=== PATIENT | male | born 2000 | race Two or more races ===

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

== ENCOUNTER 2022-03-27 19:49 | Emergency (ER) | payer MEDICAID ==
--- NOTE | 2022-03-27 20:02 | ERPHSYRPT ---
- History of Present Illness Time Seen by Provider: 03/27/22 20:02 Source: patient Exam Limitations: no limitations Physician History: This is a 22-year-old male with 2 to 3-day history of tenderness redness and now abscess to the right inner thigh. He did not see an insect or spider. It may be an infected hair follicle. He presents today with a temperature of 102 F as well as heart rate in the 120s. Timing/Duration: day(s) (2 to 3 days) Quality: painful Severity: moderate Location: none Possible Causes: no cause identified Associated Symptoms: swelling/mass/lumps (Under red abscess) Allergies/Adverse Reactions: No Known Drug Allergies Allergy (Verified 05/27/20 14:19) Home Medications: Mesalamine [Pentasa] 1,000 mg PO QID 05/27/20 [History] Hx Tetanus, Diphtheria Vaccination/Date Given: Yes (UP TO DATE) Hx Influenza Vaccination/Date Given: No Hx Pneumococcal Vaccination/Date Given: No Travel Risk - International Travel Have you traveled outside of the country in past 3 weeks: No - Coronavirus Screening Are you exhibiting any of the following symptoms?: No Close contact with a COVID-19 positive Pt in past 14-21 Days: No - Review of Systems Constitutional: Fever Eyes: No Symptoms Ears, Nose, & Throat: No Symptoms Respiratory: No Symptoms Cardiac: No Symptoms Abdominal/Gastrointestinal: No Symptoms Genitourinary Symptoms: No Symptoms Musculoskeletal: No Symptoms Skin: Cellulitis (Right inner upper thigh abscess) Neurological: No Symptoms Psychological: No Symptoms Endocrine: No Symptoms Hematologic/Lymphatic: No Symptoms Immunological/Allergic: No Symptoms All Other Systems: Reviewed and Negative - Past Medical History Pertinent Past Medical History: No Other Medical History: inflammed colon - Past Surgical History Past Surgical History: No - Social History Smoking Status: Never smoker Exposure to second hand smoke: No Drug Use: none Patient Lives Alone: No - Nursing Vital Signs Nursing Vital Signs: Initial Vital Signs Temperature 102.6 F 03/27/22 19:57 Pulse Rate 119 H 03/27/22 19:57 Respiratory Rate 18 03/27/22 19:57 Blood Pressure 136/84 03/27/22 19:57 O2 Sat by Pulse Oximetry 96 03/27/22 19:57 Pain Scale Pain Intensity 6 - Physical Exam General Appearance: no apparent distress, alert Eye Exam: PERRL/EOMI, eyes nml inspection Ears, Nose, Throat Exam: normal ENT inspection, moist mucous membranes Neck Exam: normal inspection, non-tender, supple, full range of motion Respiratory Exam: airway intact, No chest tenderness, No respiratory distress Cardiovascular Exam: tachycardia Gastrointestinal/Abdomen Exam: No tenderness Rectal Exam: not done Extremity Exam: normal range of motion, pelvis stable, tenderness (Right upper inner outer thigh with cellulitis, induration and a 2 cm x 2 cm abscess) Neurologic Exam: alert, oriented x 3, cooperative, orthotics prosthetics technician II-XII nml as tested, normal mood/affect, nml cerebellar function, nml station & gait, sensation nml Skin Exam: other (Abscess right upper inner thigh) Lymphatic Exam: No adenopathy SpO2 Interpretation: normal O2 Delivery: Room Air Procedures - Incision and Drainage Time of Procedure: 20:25 Site: Right upper inner thigh Anesthesia: 1% Lidocaine cc's of anesthesia: 5 Blade Size: 15 I & D Procedure: betadine prep Results: small amount pus Ordered Tests: Active Orders 24 hr Category Date Time Status IV Insertion STAT Care 03/27/22 20:30 Active Pulse Oximetry (ED) STAT Care 03/27/22 20:30 Active BLOOD CULTURE Stat Lab 03/27/22 20:52 Received BMP Stat Lab 03/27/22 20:35 Completed CBC W DIFF Stat Lab 03/27/22 20:35 Completed CULTURE,WOUND Stat Lab 03/27/22 20:52 Received Medication Summary Generic Name Dose Route Start Last Admin Trade Name Freq PRN Reason Stop Dose Admin Sodium Chloride 1,000 mls @ 999 mls/hr 03/27/22 20:30 03/27/22 20:49 Sodium Chloride 0.9% 1000 Ml IV 03/27/22 21:30 999 mls/hr .Q1H1M STA Administration Discontinued Medications Generic Name Dose Route Start Last Admin Trade Name Freq PRN Reason Stop Dose Admin Hydrocodone Bitart/Acetaminophen 2 tab 03/27/22 21:01 Hydrocodone/Apap 5/325 1 Tab Tablet PO 03/27/22 21:02 SENT HOME W/ PATIENT ONE Hydrocodone Bitart/Acetaminophen 1 tab 03/27/22 21:05 03/27/22 21:18 Hydrocodone/Apap 5/325 1 Tab Tablet PO 03/27/22 21:06 1 tab STAT ONE Administration Hydrocodone Bitart/Acetaminophen Confirm 03/27/22 21:15 Hydrocodone/Apap 5/325 1 Tab Tablet Administered 03/27/22 21:16 Dose 1 tab .ROUTE .STK-MED ONE Ceftriaxone Sodium 1,000 mg 03/27/22 20:30 03/27/22 20:59 Ceftriaxone Sodium 1000 Mg Inj Vial IM 03/27/22 20:31 Not Given STAT ONE Ceftriaxone Sodium/Dextrose 1 g in 50 mls @ 100 mls/hr 03/27/22 20:39 03/27/22 20:48 Rocephin 1 Gm-D5w 50 Ml Bag IV 03/27/22 21:08 100 ml/hr STAT STA 100 mls/hr Administration Sodium Chloride Confirm 03/27/22 20:45 Sodium Chloride 0.9% 1000 Ml Administered 03/27/22 20:46 Dose 1,000 mls @ ud .ROUTE .STK-MED ONE Ceftriaxone Sodium/Dextrose Confirm 03/27/22 20:45 Rocephin 1 Gm-D5w 50 Ml Bag Administered 03/27/22 20:46 Dose 1 g in 50 mls @ ud IV .STK-MED ONE Ibuprofen 600 mg 03/27/22 21:05 03/27/22 21:17 Ibuprofen 600 Mg Tablet PO 03/27/22 21:06 600 mg STAT ONE Administration Ibuprofen Confirm 03/27/22 21:15 Ibuprofen 600 Mg Tablet Administered 03/27/22 21:16 Dose 600 mg .ROUTE .STK-MED ONE Levofloxacin 500 mg 03/27/22 20:30 03/27/22 20:50 Levofloxacin 500 Mg Tablet PO 03/27/22 20:31 500 mg STAT STA Administration Levofloxacin Confirm 03/27/22 20:45 Levofloxacin 500 Mg Tablet Administered 03/27/22 20:46 Dose 500 mg .ROUTE .STK-MED ONE Lidocaine HCl Confirm 03/27/22 20:45 Lidocaine Hcl 1% 20 Ml Mdv 20 Ml Ml Administered 03/27/22 20:46 Dose 5 ml .ROUTE .STK-MED ONE Lidocaine HCl 5 ml 03/27/22 21:13 03/27/22 21:17 Lidocaine Hcl 1% 20 Ml Mdv 20 Ml Ml IJ 03/27/22 21:14 5 ml STAT ONE Administration Lidocaine/Epinephrine 5 ml 03/27/22 20:29 03/27/22 21:18 Lidocaine Hcl/Epinephrine 1% 20 Ml IJ 03/27/22 20:30 Not Given STAT ONE Lab/Rad Data: Laboratory Result Diagrams 03/27/22 20:35 03/27/22 20:35 Laboratory Results 03/27/22 03/27/22 Range/Units 20:35 20:35 WBC 6.4 (4.0-10.5) x10^3/uL RBC 4.74 (4.1-5.6) x10^6/uL Hgb 13.0 (12.5-18.0) g/dL Hct 39.7 L (42-50) % MCV 83.8 (78-100) fL MCH 27.4 (26-32) pg MCHC 32.7 (32-36) g/dL RDW 12.2 (11.5-14.0) % Plt Count 209 (150-450) x10^3/uL MPV 9.1 (7.5-11.0) fL Gran % 69.2 H (36.0-66.0) % Immature Gran % (Auto) 0.3 (0.00-0.4) % Nucleat RBC Rel Count 0.0 (0.00-0.1) % Eos # (Auto) 0.01 (0-0.5) x10^3/uL Immature Gran # (Auto) 0.02 (0.00-0.03) x10^3u/L Absolute Lymphs (auto) 1.62 (1.0-4.6) x10^3/uL Absolute Monos (auto) 0.29 (0.0-1.3) x10^3/uL Absolute Nucleated RBC 0.00 (0.00-0.01) x10^3u/L Lymphocytes % 25.3 (24.0-44.0) % Monocytes % 4.5 (0.0-12.0) % Eosinophils % 0.2 (0.00-5.0) % Basophils % 0.5 (0.0-0.4) % Absolute Granulocytes 4.44 (1.4-6.9) x10^3/uL Basophils # 0.03 (0-0.4) x10^3/uL Sodium 132 L (137-145) mmol/L Potassium 3.5 (3.5-5.1) mmol/L Chloride 98 (98-107) mmol/L Carbon Dioxide 28 (22-30) mmol/L Anion Gap 10.1 (5-15) MEQ/L BUN 10 (9-20) mg/dL Creatinine 0.82 (0.66-1.25) mg/dL Estimated GFR > 60.0 ML/MIN Glucose 102 (74-106) mg/dL Calcium 8.3 L (8.4-10.2) mg/dL - Progress Progress: improved Counseled pt/family regarding: lab results, diagnosis, need for follow-up - Departure Departure Disposition: Home Clinical Impression: Abscess of right thigh, Cellulitis of right thigh Condition: Stable Critical Care Time: No Referrals: CLAUDIA GLOVER [Primary Care Provider] - Follow up/PCP as directed Additional Instructions: When you get home get in the shower and have the soap and water go directly onto the incision site. Blot dry use a hairdryer to dry the site. Expect some oozing of blood that should decrease over the next 2 to 3 days. Change the dressing as needed. Take your antibiotics as prescribed. Use your pain medicine as prescribed. Do not use any lotions ointments or creams. The wound will heal from the inside out. Therefore, make sure that you open up the wound to get the soap and water directly into the wound as best as possible during each washing. Prescriptions: Hydrocodone/APAP 5/325 [[place] 5/325 mg] 1 each PO Q8H PRN PRN #6 tablet MDD 3 PRN Reason: Pain Smz/Tmp Ds Tablet [Bactrim Ds Tablet] 1 udtab PO BID #14 tablet
[2022-03-27 20:14] VITALS: BP 136/84
[2022-03-27] MEDS ORDERED: XYLOCAINE 1%/Epi 1:100000 MDV 20 ML IJ ONE (20:29)
[2022-03-27] MEDS ORDERED: Levofloxacin 500 MG Tablet PO STA (20:30)
[2022-03-27] MEDS ORDERED: Rocephin 1000 MG INJ IM ONE (20:30)
[2022-03-27] MEDS ORDERED: Sodium Chloride 0.9% 1000 ML 1,000 ML IV STA (20:30)
[2022-03-27 20:37] LABS: Absolute Neutrophil Ct (ANC) 4.44 x10^3/uL (1.4-6.9); Basophil (Absolute #) 0.03 x10^3/uL (0-0.4); Eosinophil % 0.2 % (0.00-5.0); Eosinophil (Absolute #) 0.01 x10^3/uL (0-0.5); Hematocrit 39.7 % (42-50); Lymphocyte (Absolute #) 1.62 x10^3/uL (1.0-4.6); Lymphocytes % 25.3 % (24.0-44.0); Mean Cell Volume 83.8 fL (78-100); Mean Corpuscular Hemoglobin 27.4 pg (26-32); Mean Corpuscular Hgb Concent. 32.7 g/dL (32-36); Mean Platelet Volume 9.1 fL (7.5-11.0); Monocyte (Absolute #) 0.29 x10^3/uL (0.0-1.3); Monocytes % 4.5 % (0.0-12.0); Neutrophil % 69.2 % (36.0-66.0); Platelet Count 209 x10^3/uL (150-450); Red Blood Count 4.74 x10^6/uL (4.1-5.6); Red Cell Distribution Width 12.2 % (11.5-14.0); White Blood Count 6.4 x10^3/uL (4.0-10.5)
[2022-03-27] MEDS ORDERED: ROCEPHIN 1 Gm-D5w 50 ml Bag** 1 G/50 ML IVPB IV STA (20:39)
[2022-03-27 20:44] LABS: ANION GAP 10.1 MEQ/L (5-15); BLOOD UREA NITROGEN 10 mg/dL (9-20); CHLORIDE 98 mmol/L (98-107); Calcium 8.3 mg/dL (8.4-10.2); Carbon Dioxide 28 mmol/L (22-30); Creatinine 1 0.82 mg/dL (0.66-1.25); EST GLOMERULAR FILTRATION RATE > 60.0 ML/MIN; Glucose 102 mg/dL (74-106); Potassium 3.5 mmol/L (3.5-5.1); SODIUM 132 mmol/L (137-145)
[2022-03-27] MEDS ORDERED: XYLOCAINE 1% HCL 20 ML MDV ONE (20:45)
[2022-03-27] MEDS ORDERED: Sodium Chloride 0.9% 1000 ML 1,000 ML ONE (20:45)
[2022-03-27] MEDS ORDERED: Levofloxacin 500 MG Tablet ONE (20:45)
[2022-03-27] MEDS ORDERED: ROCEPHIN 1 Gm-D5w 50 ml Bag** 1 G/50 ML IVPB IV ONE (20:45)
[2022-03-27] MEDS ORDERED: NORCO 5/325 MG PO ONE ×2 (21:01→21:05)
[2022-03-27 21:05] VITALS: PULSE 107; O2SAT 98
[2022-03-27] MEDS ORDERED: XYLOCAINE 1% HCL 20 ML MDV IJ ONE (21:13)
[2022-03-27] MEDS ORDERED: MOTRIN 600 MG ONE (21:15)
[2022-03-27] MEDS ORDERED: NORCO 5/325 MG ONE ×2 (21:15→21:22)
[2022-03-27] MEDS: MOTRIN 600 MG PO ONE (21:17)
== END 2022-03-27 21:46 | disposition home or self-care (01) ==
LOC: ED 19:49
DX: L02.415 Cutaneous abscess of right lower limb (principal); L03.115 Cellulitis of right lower limb; R50.9 Fever, unspecified; R00.0 Tachycardia, unspecified; Z79.891 Long term (current) use of opiate analgesic; Z79.899 Other long term (current) drug therapy
CPT/HCPCS: 10060; 36415; 80048; 85025; 87040; 87070; 96360; 96365; 96372; 99284; J0696; A9270-GY

== ENCOUNTER 2023-05-14 08:16 | Emergency (ER) | payer MEDICAID ==
--- NOTE | 2023-05-14 08:20 | ERPHSYRPT ---
- History of Present Illness Time Seen by Provider: 05/14/23 08:20 Source: patient Exam Limitations: no limitations Physician History: This is a 23-year-old male patient of Dr. Hernandez who presents to the emergency department with complaints of fever, headache and sore throat that began yesterday. Patient has been using ibuprofen for pain and fever control. Prior to arrival, patient took 400 mg of Advil. He has not been taking any acetaminophen. Patient has noted drug allergies and takes no medications chronically. Patient has not had any vomiting or diarrhea symptoms. He denies cough. He does not have chest pain. He is not short of breath. He has no abd ominal pain. 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) Associated Symptoms: muscle aches, sore throat, No abdominal pain, No cough, No nausea/vomiting, No shortness of breath, No stiff neck Allergies/Adverse Reactions: No Known Drug Allergies Allergy (Verified 05/14/23 08:35) Hx Tetanus, Diphtheria Vaccination/Date Given: Yes (UP TO DATE) Hx Influenza Vaccination/Date Given: No Hx Pneumococcal Vaccination/Date Given: No Travel Risk - International Travel Have you traveled outside of the country in past 3 weeks: No - Coronavirus Screening Are you exhibiting any of the following symptoms?: Yes Symptoms: Fever, Headaches/Body Aches/Fatigue Close contact with a COVID-19 positive Pt in past 14-21 Days: No - Vaccine Status Have you recieved a Covid-19 vaccination: No - Review of Systems Constitutional: Fever Eyes: No Symptoms Ears, Nose, & Throat: Throat Pain Respiratory: No Symptoms Cardiac: No Symptoms Abdominal/Gastrointestinal: No Symptoms Genitourinary Symptoms: No Symptoms Musculoskeletal: Arthralgias, Myalgias Neurological: Headache Psychological: No Symptoms Endocrine: No Symptoms Hematologic/Lymphatic: No Symptoms Immunological/Allergic: No Symptoms All Other Systems: Reviewed and Negative - Past Medical History Pertinent Past Medical History: No Other Medical History: inflammed colon - Past Surgical History Past Surgical History: No - Social History Smoking Status: Never smoker Exposure to second hand smoke: No Drug Use: none Patient Lives Alone: No - Nursing Vital Signs Nursing Vital Signs: Initial Vital Signs Temperature 102.2 F 05/14/23 08:35 Pulse Rate 112 H 05/14/23 08:35 Respiratory Rate 20 05/14/23 08:35 Blood Pressure 106/59 05/14/23 08:35 O2 Sat by Pulse Oximetry 95 05/14/23 08:35 Pain Scale Pain Intensity 0 - Physical Exam General Appearance: no apparent distress, alert Eye Exam: PERRL/EOMI, post op pupil defect (L) ENT Exam: no apparent trauma, hearing grossly normal, pharyngeal erythema (Mild) Neck Exam: normal inspection, non-tender, supple, full range of motion, trachea midline, No stiff neck Respiratory Exam: normal breath sounds, lungs clear, no accessory muscle use, No chest non-tender, No no respiratory distress, No respiratory distress, No rhonchi, No stridor, No wheezing Cardiovascular/Chest Exam: tachycardia (Mild) Gastrointestinal/Abdominal Exam: soft, non tender, no distention, no mass, no guarding, no ecchymosis, no organomegaly, no pulsatile mass, normal bowel sounds Rectal Exam: not done Extremity Exam: non-tender, normal range of motion, normal inspection, normal capillary refill, no calf tenderness, no pedal edema, pelvis stable Neurologic Exam: alert, oriented x 3, cooperative, associate media planner II-XII nml as tested, normal mood/affect, nml cerebellar function, nml station & gait, sensation nml Skin Exam: normal color, warm, dry Lymphatic: No adenopathy SpO2 Interpretation: normal O2 Delivery: Room Air - Course Nursing assessment & vital signs reviewed: Yes Ordered Tests: Active Orders 24 hr Category Date Time Status UA W/RFX UR CULTURE Stat Lab 05/14/23 08:34 Completed Medication Summary Discontinued Medications Generic Name Dose Route Start Last Admin Trade Name Ata PRN Reason Stop Dose Admin Acetaminophen 650 mg 05/14/23 08:56 05/14/23 09:07 Acetaminophen 325 Mg Tablet PO 05/14/23 08:57 650 mg STAT ONE Administration Acetaminophen Confirm 05/14/23 08:59 Acetaminophen 325 Mg Tablet Administered 05/14/23 09:00 Dose 650 mg .ROUTE .STK-MED ONE Ibuprofen 200 mg 05/14/23 08:56 05/14/23 09:07 Ibuprofen 200 Mg Tablet PO 05/14/23 08:57 200 mg STAT ONE Administration Lab/Rad Data: Laboratory Results 05/14/23 05/14/23 Range/Units 08:34 08:34 Urine Color Dark Yellow (Yellow) Urine Appearance Clear (Clear) Urine pH 6.0 (4.6-8.0) Ur Specific [place] >=1.030 A (1.005-1.030) Urine Protein 30 (Negative) Urine Glucose (UA) Negative (Negative) mg/dL Urine Ketones Trace A (Negative) Urine Blood Negative (Negative) Urine Nitrite Negative (Negative) Urine Bilirubin Negative (Negative) Urine Urobilinogen 1.0 A (0.2) mg/dL Ur Leukocyte Esterase Negative (Negative) U Hyaline Cast (Auto) NONE SEEN (0-2) /LPF Urine Microscopic RBC 0-2 (0-5) /HPF Urine Microscopic WBC 0-2 (0-5) /HPF Ur Epithelial Cells None Seen (None Seen) /HPF Urine Bacteria None Seen (None Seen) /HPF Urine Culture Reflexed NO (NO) Influenza Type A Ag POSITIVE A (NEGATIVE) Influenza Type B Ag NEGATIVE (NEGATIVE) RSV (PCR) NEGATIVE (NEGATIVE) SARS-CoV-2 (PCR) NEGATIVE (NEGATIVE) Group A Strep Antibody NOT DETECTED (NEGATIVE) - Progress Progress Note: 05/14/23 08:54 This patient's medical issue is 1 of low to moderate complexity. The level of complexity in the workup performed is based on review of the patient's past medical history, review of the patient's medication list, review of the patient's drug allergy list, history of present illness and physical findings on examination. This patient's medical workup includes urinalysis, viral swabs, group A strep. Patient is not taking enough of ibuprofen. Will provide him with 200 mg more of ibuprofen and 650 mg of Tylenol. 05/14/23 10:13 I interpreted the patient's laboratory data results. Patient has influenza A. We will remotely send a prescription for Tamiflu to his pharmacy Counseled pt/family regarding: lab results, diagnosis, need for follow-up Medical Desision Making - Diagnostic Testing Diagnostic test were ordered, analyzed, and reviewed by me: Yes - Risk of complications The pt has a mod risk of morbidity or mortality based on: Need for prescription drug management - Departure Departure Disposition: Home Clinical Impression: Fever, Influenza A H1N1 infection Condition: Stable Critical Care Time: No Referrals: CLAUDIA HERNANDEZ [Primary Care Provider] - Follow up/PCP as directed Additional Instructions: Drink plenty of cool liquids. Take 600 mg of ibuprofen every 6-8 hours with food for the next 4 days to help with headache and fever control. Take 650 mg of Tylenol every 6-8 hours over the next 4 days to help with headache and fever control. Take your Tamiflu prescription as prescribed. Follow-up with your primary care provider for further evaluation management. Prescriptions: Oseltamivir 75 mg [Tamiflu 75MG Capsule] 75 mg PO BID #10 cap
[2023-05-14 08:44] LABS: Appearance Clear (Clear); Bacteria None Seen /HPF (None Seen); Bilirubin Negative (Negative); Blood Negative (Negative); Epithelial Cells None Seen /HPF (None Seen); Glucose, Urine Negative (Negative); Hyaline Casts NONE SEEN /LPF (0-2); Ketones Trace (Negative); Leukocyte Esterase Negative (Negative); Nitrite Negative (Negative); Protein,Urine Dip 30 (Negative); RBC 0-2 /HPF (0-5); Specific Gravity >=1.030 (1.005-1.030); WBC 0-2 /HPF (0-5)
[2023-05-14 08:45] LABS: ADD URINE CULTURE? NO (NO)
[2023-05-14] MEDS ORDERED: TYLENOL 325 MG ONE (08:59)
[2023-05-14] MEDS: TYLENOL 325 MG PO ONE (09:07)
[2023-05-14] MEDS: MOTRIN 200 MG PO ONE (09:07)
[2023-05-14 09:08] LABS: Group A Strep NOT DETECTED (NEGATIVE)
[2023-05-14 09:18] LABS: INFLUENZA B NEGATIVE (NEGATIVE); RESPIRATORY SYNCTIAL VIRUS NEGATIVE (NEGATIVE); SARS-CoV-2 Xpert Express NEGATIVE (NEGATIVE)
[2023-05-14 09:20] LABS: INFLUENZA A POSITIVE (NEGATIVE)
[2023-05-14] MEDS ORDERED: Tamiflu 75MG Capsule PO ONE (10:21)
[2023-05-14] MEDS: Tamiflu 75MG Capsule PO ONE (10:21)
[2023-05-14 10:27] VITALS: BP 100/55; PULSE 90; RESP 18; TEMP 98.5; O2SAT 98
== END 2023-05-14 10:33 | disposition home or self-care (01) ==
LOC: ED 08:16
DX: J10.1 Influenza due to other identified influenza virus with other respiratory manifestations (principal); R50.9 Fever, unspecified; R51.9 Headache, unspecified; Z28.310 Unvaccinated for COVID-19
CPT/HCPCS: 0241U; 81001; 87651; 99282; A9270-GY